=== PATIENT | female | born 1965 | race Caucasian/White ===

== ENCOUNTER → 2022-11-30 18:52 | Outpatient (CLI) | payer OTHER, SELFPAY ==
--- NOTE | 2022-11-30 18:54 | DI.RAD.S_ITS ---
PROCEDURE: XR CHEST 2V INDICATIONS: f/u xr R middle lobe PNA ([facility] 3weeks ago) TECHNIQUE: 2 views of the chest were acquired. COMPARISON: None. FINDINGS: Surgical changes and devices: None. Lungs and pleura: Moderate interval decrease in size dense right upper lobe pneumonia. There is volume loss in the right lung, likely due to consolidation. No effusions. No pneumothorax. Left lung is clear. Mediastinum: Mediastinal contours are normal. Heart size is normal. Bones and chest wall: No suspicious bony abnormalities. Soft tissues appear unremarkable. IMPRESSION: 1. Moderate interval decrease of right upper lobe Dictated by: Kesha Florence M.D. on 11/30/2022 at 19:44 Approved by: Kesha Florence M.D. on 11/30/2022 at 19:46
== END ==
PROVIDERS: PCP Student in an Organized Health Care Education/Training Program; Referring Provider Student in an Organized Health Care Education/Training Program; Visit Provider Student in an Organized Health Care Education/Training Program
DX: R05.3 Chronic cough (principal); J18.9 Pneumonia, unspecified organism
CPT/HCPCS: 71046